=== PATIENT | male | born 1960 | race Two or more races ===

== ENCOUNTER 2020-03-16 21:14 | Emergency (ER) | payer OTHER ==
[2020-03-16] MEDS ORDERED: HYDROCODONE/ACETAMINOPHEN 5-325 MG TABLET PO ONE (21:41)
--- NOTE | 2020-03-16 21:44 | ER Document Report ---
ED Extremity Problem, Lower - General Chief Complaint: Leg Injury Stated Complaint: POSSIBLE LEG INJURY Time Seen by Provider: 03/16/20 21:36 Mode of Arrival: Wheelchair Information source: Patient Notes: 59-year-old male presented to ED for injury to the left lower leg. He states he was lifting his lawn tractor out of a ditch when he heard a loud pop. He has a severely bruised and painful left lower leg. 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 He does have a history of high blood pressure cholesterol and pneumonia. He is alert oriented respirations regular nonlabored speaking in full sentences. He does not smoke drink or use any illicit drugs. He does live with his family. REVIEW OF SYSTEMS: CONSTITUTIONAL : Denies fever, chills, or sweats. Denies recent illness. CARDIOVASCULAR: Denies chest pain. RESPIRATORY: Denies cough, cold, or chest congestion. Denies shortness of breath, difficulty breathing, or wheezing. MUSCULOSKELETAL: Pain swelling to the left lower leg from the knee to the ankle. Bruising around the ankle. Severe tenderness to the inner calf. He states he lifted a tractor out of the ditch heard a pop and has had severe pain since SKIN: Oozing to the left lower leg and ankle. Scars to both legs from previous quadruple bypass with donor veins taken from the legs HEMATOLOGIC : Denies easy bruising or bleeding. LYMPHATIC: Denies swollen, enlarged glands. NEUROLOGICAL: Denies altered mental status or loss of consciousness. Denies headache. Denies weakness or paralysis or loss of use of either side. Denies problems with gait or speech. Denies sensory or motor loss. PSYCHIATRIC: Denies anxiety or stress or depression. ALL OTHER SYSTEMS REVIEWED AND NEGATIVE. PHYSICAL EXAMINATION: GENERAL: Well-appearing, well-nourished and in no acute distress. HEAD: Atraumatic, normocephalic. EYES: Pupils equal round and reactive to light, extraocular movements intact, sclera anicteric, conjunctiva are normal. ENT: nares patent, oropharynx clear without exudates. Moist mucous membranes. NECK: Normal range of motion, supple without lymphadenopathy LUNGS: Breath sounds clear to auscultation bilaterally and equal. No wheezes rales or rhonchi. HEART: Regular rate and rhythm without murmurs ABDOMEN: Soft, nontender, normoactive bowel sounds. No guarding, no rebound. No masses appreciated. EXTREMITIES: Patient is able to move his leg freely but it is very painful. He has a lot of tenderness to palpation to the left calf. He does have scars to both legs from veins removed for his quadruple bypass. NEUROLOGICAL: No focal neurological deficits. Moves all extremities spo ntaneously and on command. PSYCH: Normal mood, normal affect. SKIN: Ecchymosis and swelling to the left calf - HPI Patient complains to provider of: Injury, Pain, Swelling Location: Ankle, Leg Occurred: Yesterday Where: Home, Outdoors Onset/Duration: Persistent Quality of pain: Burning, Sharp, Throbbing Severity: Severe Pain Level: 5 Context: Other - To the tractor and heard a loud pop Recent injury: Yes Associated symptoms: Painful ambulation Exacerbated by: Hanging down, Movement, Walking Relieved by: Elevation, Ice, Rest - Related Data Allergies/Adverse Reactions: No Known Allergies Allergy (Unverified 03/16/20 21:38) Past Medical History - General Information source: Patient - Social History Smoking Status: Former Smoker Chew tobacco use (# tins/day): No Frequency of alcohol use: None Drug Abuse: None Lives with: Family Family History: Reviewed & Not Pertinent Patient has homicidal ideation: No - Past Medical History Cardiac Medical History: Reports: Hx Heart Attack, Hx Hypercholesterolemia, Hx Hypertension Pulmonary Medical History: Reports: Hx Pneumonia EENT Medical History: Reports: None Neurological Medical History: Reports: None Endocrine Medical History: Reports: None Renal/ Medical History: Reports: None Malignancy Medical History: Reports None GI Medical History: Reports: None Musculoskeletal Medical History: Reports None Skin Medical History: Reports None Psychiatric Medical History: Reports: None Traumatic Medical History: Reports: None Infectious Medical History: Reports: None Past Surgical History: Reports: Hx Cardiac Surgery - Quadruple bypass, Hx Coronary Artery Bypass Graft, Hx Vascular Surgery - Veins removed from both legs for quadruple bypass - Immunizations Immunizations up to date: Yes Hx Diphtheria, Pertussis, Tetanus Vaccination: Yes Physical Exam - Vital signs Vitals: Temp Pulse Resp BP Pulse Ox 98.2 F 108 H 17 163/77 H 97 03/16/20 21:24 03/16/20 21:24 03/16/20 21:24 03/16/20 21:24 03/16/20 21:24 Course - Re-evaluation Re-evalutation: 03/16/20 23:57 Discussed x-ray with patient. I discussed x-ray with Dr. brown he agreed patient should have a knee immobilizer crutches elevate ice the leg no walking on the leg and follow-up with orthopedics on Wednesday. These instructions were given to the patient and patient verbalized understanding and agreement with this treatment plan. He was placed in a knee immobilizer given instruction on the crutches and given a Hubbard dispense pack for his pain. He was instructed to take 1 every 6 hours as needed for pain to keep the leg elevated and iced. Patient was discharged home after he verbalized agreement and understanding of his instructions. - Vital Signs Vital signs: Temp Pulse Resp BP Pulse Ox 98.2 F 84 20 142/74 H 98 03/16/20 23:40 03/16/20 23:40 03/16/20 23:40 03/16/20 23:40 03/16/20 23:40 - Diagnostic Test Radiology reviewed: Image reviewed, Reports reviewed Procedures - Immobilization Left Knee Time completed: 00:01 Immobilizer type: Crutches, Knee immobilizer Performed by: RN Post-Proc Neuro Vasc Exam: Normal Alignment checked and good: Yes Discharge - Discharge Clinical Impression: Muscle injury to the left calf Condition: Stable Disposition: HOME, SELF-CARE Additional Instructions: You were seen today for the pain to the left lower leg. Your x-ray does not show any bony injury but it does show swelling to the soft tissue on the left lower leg. You have probably torn or strained your left calf muscles. Please wear the knee immobilizer anytime you are up. Please try not to walk any more than you absolutely have to. Please use crutches when you are walking so that should not of putting weight on this foot. Ice & Elevation Apply ice packs frequently against the painful area. Many different schedules are recommended, such as "20 minutes on, 20 minutes off" or "one hour ice, two hours rest." If you need to work, you may need to go longer between ice treatments. You should plan to have the area ice packed AT LEAST one-fourth of the time. The ice should be applied over the wrap, tape, or splint, or over a layer of cloth -- not directly against the skin. Some ice bags have a built-in cloth and can be put directly on the skin. Your injured part should be elevated as much as possible over the next 48 hours. Try to keep the injury above the level of the heart. Avoid use of the injured area. Elevation and rest will decrease the swelling. Knee Immobilizing Splint The knee immobilizing splint will protect the injury while healing begins. This type of splint does not allow the knee to bend at all. No running or sports will be possible. If the splint allows painfree walking, it's giving adequate protection. If there is still significant pain, crutches may be needed as well. Don't do anything that hurts. Adjusted the splint, if necessary. The stiffeners on the sides are attached with Velcro, so they can be easily moved to adjust for thigh and calf size. If you need help with these adjustments, come back. You will lose muscle strength in the thigh while using this splint. The doctor will advise you if it's safe to do isometric knee exercises while you use it. Oral Narcotic Medication You have been given a "Hubbard dispense pack for pain control. This medication is a narcotic. It's best taken with food, as nausea can result if taken on an empty stomach. Don't operate machinery or drive within six hours of taking this medication. Do not combine this medicine with alcohol, or with any medication which can cause sedation (such as cold tablets or sleeping pills) unless you get permission from the physician. Narcotics tend to cause constipation. If possible, drink plenty of fluids and eat a diet high in fiber and fruits. FOLLOW-UP CARE: If you have been referred to a physician for follow-up care, call the physicians office for an appointment as you were instructed or within the next two days. If you experience worsening or a significant change in your symptoms, notify the physician immediately or return to the Emergency Department at any time for re-evaluation. Forms: Elevated Blood Pressure, Special Work Note Referrals: [facility] [Provider Group] - Follow up as needed
--- NOTE | 2020-03-16 22:29 | RADIOLOGY REPORT (SQ) ---
CLINICAL INDICATION: Severe pain left lower leg and ankle injury. . TECHNIQUE: 3 view(s) were obtained of the left ankle. COMPARISON: None. FINDINGS: No acute displaced fracture is identified of the ankle. Alignment appears anatomic. Joint spaces are within normal limits for age. Postsurgical change from apparent vein harvesting. Soft tissue swelling. IMPRESSION: No evidence of acute displaced fracture of the ankle.
--- NOTE | 2020-03-16 22:31 | RADIOLOGY REPORT (SQ) ---
EXAM DESCRIPTION: X-ray, two views of the left tibia and fibula CLINICAL HISTORY: 59 years Male, Severe pain left lower leg and ankle injury mid shaft pain. COMPARISON: None. FINDINGS: Vascular clips are seen along the medial aspect of the mid and distal leg. The tibia and fibula are intact. No fracture. No air in the soft tissues. The knee and ankle appear normal. IMPRESSION: No fracture.
[2020-03-16 23:41] VITALS: BP 142/74
[2020-03-16] MEDS ORDERED: HYDROCODONE/ACETAMINOPHEN 5-325 MG (6 TAB/ER DISP) PO PRN (23:47)
== END 2020-03-16 23:40 | disposition home or self-care (01) ==
LOC: ER 21:14
DX: S80.12XA Contusion of left lower leg, initial encounter (principal); X50.0XXA Overexertion from strenuous movement or load, initial encounter; Y92.009 Unspecified place in unspecified non-institutional (private) residence as the place of occurrence of the external cause; I25.2 Old myocardial infarction; I10 Essential (primary) hypertension; Z95.1 Presence of aortocoronary bypass graft; Z87.891 Personal history of nicotine dependence
CPT/HCPCS: 99284

== ENCOUNTER → 2020-03-30 | Outpatient (CLI) | payer OTHER ==
--- NOTE | 2020-03-30 13:11 | RADIOLOGY REPORT (SQ) ---
EXAM DESCRIPTION: MRI LT LOWER EXTREMITY WITHOUT IMAGES COMPLETED DATE/TIME: 03/30/2020 8:53 am REASON FOR STUDY: M66.362, SPONTANEOUS RUPTURE OF FLEXOR TENDONS LEFT LOWER LEG M66.362 SPONTANEOU S RUPTURE OF FLEXOR TENDONS, LEFT LOWER LE COMPARISON: None. TECHNIQUE: Multiplanar imaging of the left tibia and fibula excluding ankle joint to include fat and fluid sensitive sequences. LIMITATIONS: None. FINDINGS: BONE MARROW: Normal. SOFT TISSUES: 4.3 x 1.5 by 14 cm AP by transverse by craniocaudal diameter abnormal fluid signal betw een the soleus and medial head of the gastrocnemius in the proximal and mid calf. OTHER: No other significant finding. IMPRESSION: Plantaris tendon rupture. TECHNICAL DOCUMENTATION: JOB ID: [id number] 2010 [employer]- All Rights Reserved Reading location - IP/workstation name: [email or web address]
== END ==
LOC: RAD 08:05
PROVIDERS: ATTEND Orthopaedic Surgery
DX: M66.362 Spontaneous rupture of flexor tendons, left lower leg (principal)